=== PATIENT | male | born 1985 | race African-American/Black ===

== ENCOUNTER 2023-03-08 02:58 | Emergency (ER) | payer OTHER ==
[2023-03-08] MEDS ORDERED: IBUP-2029 MT (03:25)
[2023-03-08] MEDS ORDERED: IBUPROFEN 800MG TABLET PO ONE (03:30)
== END 2023-03-08 03:35 | disposition home or self-care (01) ==
LOC: ER 02:58
DX: M25.512 Pain in left shoulder (principal); S80.12XA Contusion of left lower leg, initial encounter; V49.9XXA Car occupant (driver) (passenger) injured in unspecified traffic accident, initial encounter; Y93.89 Activity, other specified; Y92.89 Other specified places as the place of occurrence of the external cause; Y99.8 Other external cause status
CPT/HCPCS: 99282